=== PATIENT | female | born 1945 | race Caucasian/White ===

== ENCOUNTER 2017-02-21 11:07 | Emergency (ER) | payer SELFPAY ==
[~2017-02-21] VITALS: Ht 152.4 cm; Wt 57.1 kg
[2017-02-21 11:53] LABS: BASOPHIL % 0.3 % (0-2); PLATELET COUNT 248 x10^3mcL (130-400); RED CELL DISTRIBUTION WIDTH 13.1 % (11.5-14.5)
[2017-02-21 12:02] LABS: CALCIUM 8.6 mg/dL (8.5-10.1); CARBON DIOXIDE 26.9 mmol/L (21-32); CHLORIDE SERUM 91 mmol/L (98-107); CREATININE SERUM 0.8 mg/dL (0.6-1.0); GLUCOSE SERUM 211 mg/dL (74-106); SODIUM SERUM 126 mmol/L (136-145)
[2017-02-21 12:07] LABS: ALBUMIN 4.1 g/dL (3.4-5.0); ALKALINE PHOSPHATASE 60 U/L (46-116); ALT/SGPT 17 U/L (14-59); AST/SGOT 18 U/L (15-37); BILIRUBIN TOTAL 0.27 mg/dL (0.20-1.00); TOTAL PROTEIN, SERUM 7.5 g/dL (6.4-8.2)
[2017-02-21 12:32] LABS: UA SPECIFIC GRAVITY <=1.005 (1.005-1.035); microscopic required? YES; urine erythrocyte TRACE (NEGATIVE)
[2017-02-21] MEDS ORDERED: VALIUM2 MG PO (12:37)
[2017-02-21] MEDS ORDERED: LEVOTHYROXINE0.1 M2 PO (12:38)
[2017-02-21] MEDS ORDERED: RANITIDINE HCL150 M1 PO (12:38)
[2017-02-21] MEDS ORDERED: METFORMIN HCL850 MG PO (12:38)
[2017-02-21] MEDS ORDERED: LOSARTAN POTAS100 M1 PO (12:39)
[2017-02-21] MEDS ORDERED: GLYBURIDE5 MG PO (12:40)
[2017-02-21 15:39] LABS: CALCIUM 8.3 mg/dL (8.5-10.1); CARBON DIOXIDE 27.1 mmol/L (21-32); CHLORIDE SERUM 94 mmol/L (98-107); GLUCOSE SERUM 183 mg/dL (74-106); POTASSIUM SERUM 3.9 mmol/L (3.5-5.1); SODIUM SERUM 129 mmol/L (136-145)
[2017-02-21 19:25] VITALS: BP 136/66
== END 2017-02-21 19:25 | disposition home or self-care (01) ==
LOC: ED 11:07
PROVIDERS: Emergency Medicine
DX: R53.1 Weakness (principal); I10 Essential (primary) hypertension; E11.9 Type 2 diabetes mellitus without complications; E87.1 Hypo-osmolality and hyponatremia; E07.9 Disorder of thyroid, unspecified; R05 Cough; R51 Headache
CPT/HCPCS: 82962; J0696; J1885; Q0092